=== PATIENT | male | born 1995 | race Caucasian/White ===

== ENCOUNTER 2017-01-07 09:52 | Outpatient (CLI) | payer MEDICAID | END 2017-01-07 09:53 | disposition home or self-care (01) | DX: E03.9 Hypothyroidism, unspecified (principal) ==

== ENCOUNTER 2018-10-25 15:15 | Outpatient (CLI) | payer SELFPAY | END 2018-10-25 23:59 | disposition home or self-care (01) | LOC: LAB.R 15:15 | PROVIDERS: ATTEND Physician Assistant Medical | DX: R50.9 Fever, unspecified (principal) | CPT/HCPCS: 87275; 87276 ==